=== PATIENT | female | born 1995 ===

== ENCOUNTER 2016-07-09 20:02 | Emergency (ER) | payer MEDICAID, OTHER ==
[2016-07-09 20:13] VITALS: BP 117/74; PULSE 90; RESP 18; TEMP 98.4; O2SAT 100
--- NOTE | 2016-07-09 21:13 | C.PDOC ---
History Of Present Illness 20 yr old female presents to the ER with complaints of dental pain and swelling for the past 2 days. Patient reports she is 4 months . Patient denies fever, chills, difficulty swallowing, throat swelling, difficulty breathing, neck pain, headache, weakness or numbness. 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) Onset/Duration Of Symptoms: Days (2) Current Symptoms Are (Timing): Still Present Past Medical History Reviewed: Historical Data, Nursing Documentation, Vital Signs Vital Signs: Last Vital Signs Temp 98.4 F 07/09/16 20:10 Pulse 90 07/09/16 20:10 Resp 18 07/09/16 20:10 BP 117/74 07/09/16 20:10 Pulse Ox 100 07/09/16 21:29 Family History: States: No Known Family Hx - Social History Hx Alcohol Use: No Hx Substance Use: No - Immunization History Hx Tetanus Toxoid Vaccination: Yes Hx Influenza Vaccination: No Hx Pneumococcal Vaccination: No Review Of Systems Except As Marked, All Systems Reviewed And Found Negative. Constitutional: Negative for: Fever, Chills ENT: Positive for: Other (Dental pain and swelling. ). Negative for: Throat Swelling Respiratory: Positive for: Other ((-) Difficulty breathing) Musculoskeletal: Negative for: Neck Pain Neurological: Negative for: Weakness, Numbness, Headache Physical Exam - Physical Exam Appears: Well, Non-toxic, No Acute Distress Skin: Warm, Dry, No Rash Head: Atraumatic, Normacephalic Eye(s): bilateral: Normal Inspection, EOMI Ear(s): Bilateral: Normal Nose: Normal Oral Mucosa: Moist Teeth: Tender To Palpation, Other (Tenderness to the right mandibular third molar, with partial eruption of the tooth.) Gingiva: Swelling, Tender, No Bleeding, No Abscess Throat: Normal, No Erythema, No Exudate Neck: Normal, Normal ROM, Supple Lymphatic: Normal Exam Chest: Symmetrical, No Tenderness Cardiovascular: Rhythm Regular Respiratory: Normal Breath Sounds Extremity: Normal ROM, No Swelling Neurological/Psych: Oriented x3, Normal Speech ED Course And Treatment O2 Sat by Pulse Oximetry: 100 Medical Decision Making Medical Decision Making: PLAN: * Motrin PO * Tylenol PO * Lidocaine Viscous PO Disposition - Disposition Referrals: Clinic,Med Surg [Primary Care Provider] - Disposition: HOME/ ROUTINE Disposition Time: 21:12 Condition: STABLE Additional Instructions: Vaya a schmitt mdico o la clnica en 1-3 colon sin falta, para mas evaluacin. [place] los medicamentos yue indicado. Volver a la abel de emergencia en cualquier momento si los sntomas persisten o empeoran. Prescriptions: Acetaminophen [Tylenol 325mg tab] 650 mg PO Q4 PRN #20 tab PRN Reason: Pain, Mild (1-3) Amoxicillin 875 mg PO BID #14 tablet Instructions: Toothache (ED) Print Language: ITALIAN - Clinical Impression Clinical Impression: Pain, dental - PA / RN IMCU / Resident Statement MD/DO has reviewed & agrees with the documentation as recorded. - Scribe Statement The provider has reviewed the documentation as recorded by the Scribe Poly Hernandez All medical record entries made by the Scribe were at my direction and personally dictated by me. I have reviewed the chart and agree that the record accurately reflects my personal performance of the history, physical exam, medical decision making, and the department course for this patient. I have also personally directed, reviewed, and agree with the discharge instructions and disposition.
== END 2016-07-09 21:23 | disposition home or self-care (01) ==
LOC: C.ER 20:02 → SUPCPDRO 20:02 → C.ER 21:23
DX: O99.612 Diseases of the digestive system complicating pregnancy, second trimester (principal); K08.89 Other specified disorders of teeth and supporting structures; Z3A.16 16 weeks gestation of pregnancy

== ENCOUNTER 2016-07-17 21:52 | Emergency (ER) | payer OTHER ==
[2016-07-17 22:15] VITALS: BP 101/58; PULSE 85; RESP 20; TEMP 98.5; O2SAT 100
--- NOTE | 2016-07-17 22:52 | C.PDOC ---
History Of Present Illness 20 yr old female presents to the ER with complaints of Right lower toothache for the past 7 days. Patient reports she is 4 months . Patient admits, pain is localized, worse with chewing, aching. Patient denies fever, chills, headache, dizziness, drooling, difficulty swallowing, throat swelling, difficulty breathing, neck pain, CP, SOB, wheezing or any other active complaints. Pt admits, was seen here iN ED week ago due to same complaints and received Rx: Tylenol and Amoxicillin. Pt sts, Tylenol does not relived pain. Pt also was re-evaluated by Dentist who recommend painful tooth extracting alter after the . At present time, pt appears in pain. Time Seen by Provider: 07/17/16 22:50 Chief Complaint (Nursing): Dental Pain History Per: Patient Onset/Duration Of Symptoms: Gradual Current Symptoms Are (Timing): Still Present Past Medical History Reviewed: Historical Data, Nursing Documentation, Vital Signs Vital Signs: Last Vital Signs Temp 98.5 F 07/17/16 22:11 Pulse 85 07/17/16 22:11 Resp 20 07/17/16 22:11 BP 101/58 L 07/17/16 22:11 Pulse Ox 100 07/17/16 23:43 - Medical History PMH: No Chronic Diseases Family History: States: No Known Family Hx - Social History Hx Alcohol Use: No Hx Substance Use: No - Immunization History Hx Tetanus Toxoid Vaccination: Yes Hx Influenza Vaccination: No Hx Pneumococcal Vaccination: No Review Of Systems Except As Marked, All Systems Reviewed And Found Negative. Constitutional: Negative for: Fever, Chills ENT: Positive for: Mouth Pain. Negative for: Ear Discharge, Nose Discharge, Mouth Swelling, Throat Pain, Throat Swelling Cardiovascular: Negative for: Chest Pain, Palpitations, Edema, Light Headedness Respiratory: Negative for: Shortness of Breath, Wheezing Gastrointestinal: Negative for: Nausea, Vomiting, Abdominal Pain Genitourinary: Negative for: Dysuria, Vaginal Bleeding Musculoskeletal: Negative for: Neck Pain Skin: Negative for: Rash Neurological: Negative for: Weakness, Numbness, Altered Mental Status, Headache , Dizziness Physical Exam - Physical Exam Appears: Well, Non-toxic, No Acute Distress Skin: Normal Color, Warm, No Rash Eye(s): bilateral: PERRL Ear(s): Bilateral: Normal Nose: Normal, No Discharge Oral Mucosa: Moist, No Drooling, No Trismus Tongue: Normal Appearing Lips: Normal Appearing Teeth: Tender To Palpation (Right lower wisdom , early eruption process. No gingival edema or erythema, no evidence of tooth abscess.) Gingiva: Normal Appearing, No Swelling, No Bleeding, No Abscess Throat: Normal, No Erythema, No Exudate, No Drooling, Other (Uvula midline, no edema.) Neck: Normal ROM, Trachea Midline, Supple Respiratory: No Decreased Breath Sounds, No Accessory Muscle Use, No Stridor, No Wheezing Extremity: No Pedal Edema Neurological/Psych: Oriented x3, Normal Speech ED Course And Treatment O2 Sat by Pulse Oximetry: 100 Pulse Ox Interpretation: Normal Progress Note: On re-eval, pt is afebrile, hemodynamicaly stable. Non-toxic. AMbulatory in ED with stable gait. Tolerate PO well in ED. PulseOx 100% RA. ENT: exam c/w Right lower wisdom tooth eruption with mild inflammation. No evidence of tooth abscess, no drooling or trismus. Lungs: CTA B/L, BS equal B/ L. Pt andvised and ref. to f/u with DEntist in 2 days for re-eval. Disposition Counseled Patient/Family Regarding: Diagnosis, Need For Followup, Rx Given - Disposition Referrals: [facility] [Provider Group] [facility] [Provider Group] Disposition: HOME/ ROUTINE Disposition Time: 23:40 Condition: STABLE Additional Instructions: Cold compresses to painful tooth Take medication as prescribed Tylenol 1g as need for pain Follow up with Dentist in 2-3 days for re-evaluation. Return to ED if any worsening or new changes. Prescriptions: Prednisone [Deltasone] 20 mg PO DAILY #3 tablet Instructions: Toothache (ED) Print Language: WOLOF - Clinical Impression Clinical Impression: Toothache
[2016-07-17] MEDS ORDERED: Oxycodone/Acetaminophen 5/325 mg Tab PO STA (23:17)
[2016-07-17] MEDS ORDERED: Oxycodone/Acetaminophen 5/325 mg Tab ONE (23:23)
== END 2016-07-17 23:46 | disposition home or self-care (01) ==
LOC: C.ER 21:52
DX: O99.612 Diseases of the digestive system complicating pregnancy, second trimester (principal); K08.89 Other specified disorders of teeth and supporting structures; Z3A.16 16 weeks gestation of pregnancy

== ENCOUNTER 2016-09-24 13:54 | Emergency (ER) | payer OTHER ==
[2016-09-24 13:58] VITALS: BMI 28.5
[2016-09-24 13:59] VITALS: TEMP 98.1; O2SAT 99
[2016-09-24] MEDS ORDERED: Sodium Chloride 0.9% 1,000 ML IV ONE (14:18)
[2016-09-24] MEDS ORDERED: Sodium Chloride 0.9% 1,000 ML ONE (14:48)
[2016-09-24 14:49] LABS: BASO % 0.3 % (0.0-2.0); EOS % 0.5 % (0.0-4.0); HEMOGLOBIN 10.2 g/dL (11.0-16.0); LYMPH # 1.3 K/uL (1.0-4.3); LYMPH % 12.7 % (20.0-40.0); MEAN CELL VOLUME 92.2 fL (81.0-99.0); MEAN CORPUSCULAR HEMOGLOBIN 30.4 pg (27.0-31.0); MEAN CORPUSCULAR HGB CONC 32.9 g/dL (33.0-37.0); MEAN PLATELET VOLUME 9.4 fL (7.2-11.7); MONO # 0.7 K/uL (0.0-0.8); MONO % 6.3 % (0.0-10.0); NEUT # 8.5 K/uL (1.8-7.0); NEUT % 80.2 % (50.0-75.0); RBC 3.35 Mil/uL (3.80-5.20); RED CELL DISTRIBUTION WIDTH 12.9 % (11.5-14.5); WHITE BLOOD COUNT 10.6 K/uL (4.8-10.8)
[2016-09-24 14:57] LABS: ALBUMIN 3.2 g/dL (3.5-5.0)
[2016-09-24 14:59] LABS: SQUAMOUS EPITHIAL 5 /hpf (0-5); URINE AMORPHOUS SEDIMENT OCC /ul (<OCC); URINE BILIRUBIN NEGATIVE (NEGATIVE); URINE BLOOD NEGATIVE (NEGATIVE); URINE CLARITY Hazy (Clear); URINE COLOR Yellow (YELLOW); URINE GLUCOSE (UA) NORMAL (Normal); URINE LEUKOCYTE ESTERASE TRACE Leu/uL (Negative); URINE NITRATE NEGATIVE (NEGATIVE); URINE PROTEIN NEGATIVE (NEGATIVE); URINE UROBILINOGEN NORMAL mg/dL (0.2-1.0)
[2016-09-24 15:00] LABS: ALB/GLOB RATIO 1.1 (1.0-2.1); AST/SGOT 14 U/L (14-36); BLOOD UREA NITROGEN 12 mg/dL (7-17); GFR AFRICAN-AMERICAN > 60; GFR NON-AFRICAN AMERICAN > 60
[2016-09-24 15:01] LABS: ALT/SGPT 22 U/L (9-52); CALCIUM 8.1 mg/dl (8.6-10.4)
[2016-09-24 15:10] LABS: B-TYPE NATRIURETIC PEPTIDE 40.9 pg/mL (0-450)
--- NOTE | 2016-09-24 15:23 | C.PDOC ---
Time Seen by Provider: 09/24/16 14:04 Chief Complaint (Nursing): Shortness Of Breath History Per: Patient Onset/Duration Of Symptoms: Days (1) Current Symptoms Are (Timing): Still Present Initiating Event: Other (Hot/humid weather) Context: Pt is 26 weeks Current Respiratory Medications: None Severity: Mild Associated Symptoms: Other (Headache) Recent travel outside of the [place]: No Additional History Per: Prior Records Past Medical History Reviewed: Historical Data, Nursing Documentation, Vital Signs Vital Signs: Last Vital Signs Temp 98.1 F 09/24/16 13:58 Pulse 106 H 09/24/16 13:58 Resp 18 09/24/16 14:52 BP 101/64 09/24/16 13:58 Pulse Ox 99 09/24/16 13:58 - Medical History PMH: No Chronic Diseases Surgical History: No Surg Hx Family History: States: Unknown Family Hx - Social History Hx Tobacco Use: No Hx Alcohol Use: No Hx Substance Use: No - Immunization History Hx Tetanus Toxoid Vaccination: Yes Hx Influenza Vaccination: No Hx Pneumococcal Vaccination: No Review Of Systems Except As Marked, All Systems Reviewed And Found Negative. Constitutional: Negative for: Fever ENT: Negative for: Nose Congestion, Throat Pain Cardiovascular: Negative for: Chest Pain Respiratory: Positive for: Shortness of Breath. Negative for: Cough, Hemoptysis Gastrointestinal: Negative for: Nausea, Vomiting, Abdominal Pain, Diarrhea Genitourinary: Negative for: Dysuria, Vaginal Discharge, Vaginal Bleeding, Pelvic Pain Musculoskeletal: Negative for: Neck Pain, Back Pain, Leg Pain Skin: Negative for: Rash Neurological: Positive for: Headache. Negative for: Weakness, Numbness, Incoordination, Change in Speech, Confusion, Seizures, Altered Mental Status Physical Exam - Physical Exam Appears: Non-toxic, No Acute Distress Skin: Normal Color, Warm, Dry, No Rash Head: Atraumatic, Normacephalic Eye(s): bilateral: Normal Inspection, PERRL, EOMI Oral Mucosa: Moist Neck: Normal ROM, Supple Cardiovascular: Rhythm Regular Respiratory: Normal Breath Sounds, No Accessory Muscle Use Gastrointestinal/Abdominal: Soft, No Tenderness, Other (Gravid) Back: No CVA Tenderness Extremity: Normal ROM, No Pedal Edema, No Calf Tenderness Neurological/Psych: Oriented x3, Normal Speech, Normal Motor, Normal Sensation ED Course And Treatment - Laboratory Results Result Diagrams: 09/24/16 14:46 09/24/16 14:46 O2 Sat by Pulse Oximetry: 99 Pulse Ox Interpretation: Normal Progress Note: All symptoms have resolved after IV fluids and ice water. Symptoms likely due to hot weather. Reassessment Condition: Improved Progress - Interventions Interventions:: Observation, Intravenous fluid - Medications Administered Oral: Acetaminophen - Data Reviewed Data Reviewed: Lab, Old records - Patient Status Patient status: Completely improved - Continuity of Care Discussed patient case with:: Patient, ED Nurse - Patient Plan Patient Plan: Discharge, F/U with PCP Disposition Counseled Patient/Family Regarding: Studies Performed, Diagnosis, Need For Followup - Disposition Disposition: HOME/ ROUTINE Disposition Time: 15:25 Condition: IMPROVED Additional Instructions: Follow up with your doctor. Stay cool (air conditioning). Stay hydrated (drink plenty of fluids). Return to the ER if you develop chest pain, shortness of breath, abdominal pain, vaginal bleeding, worsening of symptoms or if you have any other concerns. Instructions: (ED) Print Language: TELUGU - Clinical Impression Clinical Impression: Headache, Dyspnea,
[2016-09-24 15:39] VITALS: BP 97/60; PULSE 81; RESP 19
== END 2016-09-24 15:41 | disposition home or self-care (01) ==
LOC: C.ER 13:54
DX: O26.892 Other specified pregnancy related conditions, second trimester (principal); R06.00 Dyspnea, unspecified; R51 Headache; Z3A.26 26 weeks gestation of pregnancy
CPT/HCPCS: 80053; 81001; 83880; 84484; 85025; 96360; 99285; J7040

== ENCOUNTER 2016-11-29 15:00 | Emergency (ER) | payer OTHER ==
--- NOTE | 2016-11-29 15:19 | OBHP ---
Datetime: 11/29/2016 15:15 IP Adm Impression: , intrauterine IP Chief Complaint Other: brownish discharge Admit Comment, IP Provider: at 36weeks came with c/o brownish discharge x 1 at 10 am,no bleedin g now, no ctxs, vb, lof,+fm. no hedache or blurry vision. obhx 1 x pmh den med pnv all nkda psh den soch den sse neg a/p at 36weeks brownish disc/r/o ph pih labs cont melanie ad efm cont close observ Pelvic Type - PN: Adequate Extremities - PN: Normal Abdomen - PN: Normal Back - PN: Normal Breast - PN: Not Done Lungs - PN: Normal Heart - PN: Normal Thyroid - PN: Not Done Neurologic - PN: Normal HEENT - PN: Normal General - PN: Normal FHR - Baseline A Provider: 130 Contraction Comments Provider: none Comments, ACOG Physical Exam: gravid,non tender ext no edema,no calf ten ve closed NICHD Variability Prov Fetus A: Moderate 6-25bpm NICHD Accel Fetus A IP Provider: 15X15 FHR Category Provider Fetus A: Category I Dilatation, Provider: 0 Effacement, Provider: 0 Station, Provider: -3 Genitourinary Exam: Normal DTRs - PN: Normal
[2016-11-29 15:57] LABS: RBC URINE 1 /hpf (0-3); URINE BACTERIA RARE (<OCC); URINE BILIRUBIN NEGATIVE (NEGATIVE); URINE BLOOD NEGATIVE (NEGATIVE); URINE COLOR Yellow (YELLOW); URINE GLUCOSE (UA) 1+ mg/dL (Normal); URINE KETONE NEGATIVE (NEGATIVE); URINE LEUKOCYTE ESTERASE TRACE Leu/uL (Negative); URINE PROTEIN 1+ mg/dL (NEGATIVE); URINE UROBILINOGEN NORMAL mg/dL (0.2-1.0); WBC URINE 6 /hpf (0-5)
[2016-11-29 15:58] LABS: BASO # 0.1 K/uL (0.0-0.2); BASO % 0.6 % (0.0-2.0); EOS % 0.5 % (0.0-4.0); HEMATOCRIT 29.6 % (34.0-47.0); LYMPH # 1.4 K/uL (1.0-4.3); MEAN CORPUSCULAR HGB CONC 33.7 g/dL (33.0-37.0); MEAN PLATELET VOLUME 9.7 fL (7.2-11.7); MONO # 0.7 K/uL (0.0-0.8); MONO % 6.2 % (0.0-10.0); RED CELL DISTRIBUTION WIDTH 12.5 % (11.5-14.5); WHITE BLOOD COUNT 10.9 K/uL (4.8-10.8)
[2016-11-29 15:59] LABS: MEAN CELL VOLUME 88.8 fL (81.0-99.0)
[2016-11-29 16:16] LABS: ALB/GLOB RATIO 1.2 (1.0-2.1); ALKALINE PHOSPHATASE 140 U/L (38-126); ALT/SGPT 32 U/L (9-52); AST/SGOT 20 U/L (14-36); BILIRUBIN,DIRECT 0.1 mg/dL (0.0-0.4); BILIRUBIN,TOTAL 0.3 mg/dL (0.2-1.3); BLOOD UREA NITROGEN 9 mg/dL (7-17); CALCIUM 8.8 mg/dl (8.6-10.4); CARBON DIOXIDE 22 mmol/L (22-30); CHLORIDE 106 mmol/L (98-107); GFR AFRICAN-AMERICAN > 60; GLUCOSE,RANDOM 80 mg/dL (65-105); POTASSIUM 3.8 mmol/L (3.6-5.2); SODIUM 136 mmol/L (132-148); TOTAL PROTEIN 6.2 g/dL (6.3-8.3)
[2016-11-29 20:44] VITALS: BP 106/62; PULSE 86; RESP 18; TEMP 97; O2SAT 98
== END 2016-11-29 16:42 | disposition home or self-care (01) ==
LOC: C.EROB 15:00
DX: O26.893 Other specified pregnancy related conditions, third trimester (principal); Z3A.36 36 weeks gestation of pregnancy

== ENCOUNTER 2016-12-08 22:26 | Emergency (ER) | payer MEDICAID, OTHER ==
--- NOTE | 2016-12-08 23:32 | OBHP ---
Datetime: 12/08/2016 23:26 IP Adm Impression: Term, intrauterine ; No Active Labor IP Chief Complaint Other: pelvic pressure and swelling in ankles IP Admit Plan: Discharge home Admit Comment, IP Provider: chief complaint-pelvic pressure and swelling in ankles HPI 20 y/o at 37 weeksa nd 3 dasy with c/o pelvic pressure and notcijg swelling in ankles.den ies any vaginal bleeidng or calf painl trauma to legs, nausea, vomiting, headache. chest pain, shortn ess of breath, numbness or tingling in hands and feet couerse teen PMH denies PSH denies OBGYN HX Social hx denies tobacco,alcohol or illicit drug use Exam see exam section Extremities no calf tenderness; no erythema or induration or palpable cord in legs; trace pitting ededma in both ankles noted A/P 20 y/o at 37 .3 wga with c/o swelling in legs and pelvic pressure.no active labor.clinica lly no signs of dvt.patient discharged home -follow up in clinic in am -patient given labor, prom , bleeidng, dvt, decreased movement precautions Pelvic Type - PN: Adequate Extremities - PN: Normal Abdomen - PN: Normal Back - PN: Normal Lungs - PN: Normal Heart - PN: Normal Neurologic - PN: Normal General - PN: Normal Contraction Comments Provider: occ EGA AdmitDate IP: 37.3 Vital Signs Provider: Reviewed; Within Normal Limits IP Chief Complaint: Other FHR Category Provider Fetus A: Category I Dilatation, Provider: 0 Genitourinary Exam: Normal DTRs - PN: Normal
[2016-12-09 07:56] VITALS: BP 106/63; PULSE 84; RESP 20; TEMP 97.2
== END 2016-12-08 23:25 | disposition home or self-care (01) ==
LOC: C.EROB 22:26
DX: O26.893 Other specified pregnancy related conditions, third trimester (principal); Z3A.37 37 weeks gestation of pregnancy; R10.2 Pelvic and perineal pain; M79.89 Other specified soft tissue disorders

== ENCOUNTER 2016-12-25 20:01 | Emergency (ER) | payer MEDICAID, OTHER ==
--- NOTE | 2016-12-25 20:24 | OBHP ---
Datetime: 12/25/2016 20:19 IP Adm Impression: Term, intrauterine ; No Active Labor IP Chief Complaint Other: pelvic pressure IP Admit Plan: Discharge home Admit Comment, IP Provider: chief complaint-pelvic pressure and swelling in ankles HPI 20 y/o at 39weeksa nd 6 dasy with c/o pelvic pressure .states that she edmond dpelvic doscomf ort yesterday and also edmond dabdominal pain.pain is gone now but she fel pressure. she denies nausea, vomiting, headache. chest pain, shortness of breath, numbness or tingling in hands and feet couerse teen PMH denies PSH denies OBGYN HX Social hx denies tobacco,alcohol or illicit drug use Exam see exam section A/P 20 y/o at 39 .6 wga with c/o pelvic pressure.no active labor.nst reactive -patient discharegd home -follow up in clinic next week Pelvic Type - PN: Adequate Extremities - PN: Normal Abdomen - PN: Normal Back - PN: Normal Lungs - PN: Normal Heart - PN: Normal Neurologic - PN: Normal General - PN: Normal Weight - Estimated: 3200 Presentation-Admit: Vertex Gestation - Est Wks by US: 39.6 IP Hx Assessment: The History has been Reviewed and is Current EGA AdmitDate IP: 39.6 Vital Signs Provider: Reviewed; Within Normal Limits IP Chief Complaint: Other FHR Category Provider Fetus A: Category I Dilatation, Provider: ft Effacement, Provider: 30 Station, Provider: -3 Genitourinary Exam: Normal DTRs - PN: Normal
[2016-12-26 01:27] VITALS: BP 112/74; PULSE 80
== END 2016-12-25 20:45 | disposition home or self-care (01) ==
LOC: C.EROB 20:01
DX: O26.93 Pregnancy related conditions, unspecified, third trimester (principal); R10.2 Pelvic and perineal pain; Z3A.39 39 weeks gestation of pregnancy

== ENCOUNTER 2016-12-31 19:28 | Inpatient (IN) | payer MEDICAID, OTHER ==
[2016-12-31 19:57] VITALS: BMI 27.9
[2016-12-31] MEDS ORDERED: Dextrose 5%/Lactated Ringer's 1,000 ML IV SCH (20:00)
[2016-12-31] MEDS ORDERED: Lactated Ringer's 1,000 ML IV SCH (20:00)
[2016-12-31 20:33] LABS: CHLORIDE 101 mmol/L (98-107)
[2016-12-31 20:34] LABS: POTASSIUM 3.8 mmol/L (3.6-5.2); SODIUM 131 mmol/L (132-148)
[2016-12-31 20:36] LABS: ALB/GLOB RATIO 1.2 (1.0-2.1); ALKALINE PHOSPHATASE 192 U/L (38-126); AST/SGOT 17 U/L (14-36); BILIRUBIN,TOTAL 0.5 mg/dL (0.2-1.3); BLOOD UREA NITROGEN 12 mg/dL (7-17); CARBON DIOXIDE 21 mmol/L (22-30); GFR AFRICAN-AMERICAN > 60; TOTAL PROTEIN 6.7 g/dL (6.3-8.3)
[2016-12-31 20:37] LABS: ALT/SGPT 23 U/L (9-52); CALCIUM 8.7 mg/dl (8.6-10.4); GLUCOSE,RANDOM 74 mg/dL (65-105); RBC URINE 1 /hpf (0-3); URINE BACTERIA OCC (<OCC); URINE BILIRUBIN NEGATIVE (NEGATIVE); URINE BLOOD NEGATIVE (NEGATIVE); URINE COLOR Yellow (YELLOW); URINE GLUCOSE (UA) NORMAL (Normal); URINE KETONE NEGATIVE (NEGATIVE); URINE LEUKOCYTE ESTERASE 2+ Leu/uL (Negative); URINE PROTEIN 1+ mg/dL (NEGATIVE); URINE UROBILINOGEN NORMAL mg/dL (0.2-1.0); WBC URINE 19 /hpf (0-5)
[2016-12-31 20:40] LABS: BASO % 0.1 % (0.0-2.0); EOS % 0.2 % (0.0-4.0); HEMATOCRIT 31.3 % (34.0-47.0); LYMPH # 1.7 K/uL (1.0-4.3); LYMPH % 16.9 % (20.0-40.0); MEAN CELL VOLUME 89.1 fL (81.0-99.0); MEAN CORPUSCULAR HEMOGLOBIN 29.6 pg (27.0-31.0); MEAN CORPUSCULAR HGB CONC 33.2 g/dL (33.0-37.0); MONO # 0.7 K/uL (0.0-0.8); MONO % 6.8 % (0.0-10.0); RED CELL DISTRIBUTION WIDTH 14.1 % (11.5-14.5); WHITE BLOOD COUNT 9.9 K/uL (4.8-10.8)
[2016-12-31 22:37] LABS: RAPID PLASMA REAGIN NONREACTIVE (NONREACTIVE)
--- NOTE | 2017-01-01 02:54 | OBADHP ---
Datetime: 12/31/2016 19:55 Admit Comment, IP Provider: 21 y.o, , LMP unsure, CRUZITO 12/26/16, EGA 40w 5d by sono 06/22/16 at 1 8w 2d, for IOL. (+) AFM; denies LOF, VB; Has been having occ. mild CTx since CRUZITO; pain scale 3/10. 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 With FOB x 1/2 years; lives with him and daught er. Unemployed. Fam Hx: Mother alive 45 y.o. no med issues. Father unknown. No knonw fam h/o cancer P.E.: as above. Mildly obese in NAD. Awake, alert, oriented to time, person and place. Pleasant an d cooperative. FOB joined patient Assessment: 21 y.o. P1, 40w 5d, IOL. GBS (-). Category 1 tracing. D/W paitent cervical ripening. N ot interested in pain medications. Clinically stable. Plan: 1) Admit 2) NPO 3) IVFs 4) Continous EFM 5) Admission labs 6) Cervidil 7) Anticipate vaginial delivery Pelvic Type - PN: Adequate Extremities - PN: Normal Abdomen - PN: Normal Back - PN: Normal Breast - PN: Not Done Lungs - PN: Normal Heart - PN: Normal Thyroid - PN: Not Done Neurologic - PN: Normal HEENT - PN: Normal General - PN: Normal Presentation-Admit: Vertex FHR - Baseline A Provider: 135 Contraction Comments Provider: 10 minutes Comments, ACOG Physical Exam: Abdomen: Gravid. Soft. non tender. fundal height 39 cm All other systems reviewed and are negative Gestation - Est Wks by US: 40w 5d IP Hx Assessment: The History has been Reviewed and is Current Vital Signs Provider: Reviewed; Within Normal Limits IP Chief Complaint: Scheduled induction of labor NICHD Variability Prov Fetus A: Moderate 6-25bpm NICHD Accel Fetus A IP Provider: 15X15 FHR Category Provider Fetus A: Category I NICHD Decel Fetus A IP Provider: None Dilatation, Provider: 1 Effacement, Provider: 30 Station, Provider: -3 Genitourinary Exam: Normal DTRs - PN: Not Done EGA AdmitDate IP: 40.5 IP Adm Impression: Postterm, intrauterine ; No Active Labor IP Admit Plan: Admit to unit; Initiate labor induction protocol Datetime: 12/25/2016 20:19 IP Chief Complaint Other: pelvic pressure Weight - Estimated: 3200
--- NOTE | 2017-01-01 03:00 | OBPN ---
Datetime: 12/31/2016 21:42 IP Progress Impression: Reassuring heart rate IP Procedures: Sterile Vag Exam IP Progress Plan: Continue present management; Cervical Ripening; Anticipate Vaginal Delivery Membranes, Provider: Intact Contraction Comments Provider: 10 minutes FHR - Baseline A Provider: 135 Gestation - Est Wks by US: 40w 5d Weight - Estimated: 3632 IP Progress Note Comment: Cervidil placed, posterior vaginal vault without incident A/P: P1, 40w 5d, IOL. Cervidil in place. Category 1 tracing. Clinically stable. Plan: 1) Anticipate vaginal delivery NICHD Accel Fetus A IP Provider: 15X15 FHR Category Provider Fetus A: Category I NICHD Variability Prov Fetus A: Moderate 6-25bpm Dilatation, Provider: 1 Effacement, Provider: 30 Station, Provider: -3 NICHD Decel Fetus A IP Provider: None Datetime: 12/31/2016 19:55 Presentation-Admit: Vertex Vital Signs Provider: Reviewed; Within Normal Limits
[2017-01-01] MEDS ORDERED: Oxytocin 30 UNIT 30 UNITS/500 ML BAG IV ONE (12:23)
--- NOTE | 2017-01-01 12:24 | OBPN ---
Datetime: 01/01/2017 11:46 IP Progress Impression: Reassuring heart rate IP Procedures: Artificial ROM IP Progress Plan: Continue present management Pool Provider: Positive Membranes, Provider: Ruptured Amniotic Fluid Color, Provider: Clear FHR - Baseline A Provider: 140 IP Progress Note Comment: Patient states her current pain is about 7/10 but states she still wishes to proceed without an epidural. Ruptured membranes at 11:44am Vaginal Exam: 4/50%/-3 1.) Start pitocin 2.) Continue FHR monitoring Ирина Tai DO PGY-1 Pt was seen and examined with resident and I agree with the above. Dr Naik Vital Signs Provider: Reviewed; Within Normal Limits NICHD Accel Fetus A IP Provider: 15X15 NICHD Variability Prov Fetus A: Moderate 6-25bpm Dilatation, Provider: 4 Effacement, Provider: 50 Station, Provider: -3 NICHD Decel Fetus A IP Provider: None
[2017-01-01] MEDS ORDERED: Oxytocin 30 UNIT 30 UNITS/500 ML BAG IV SCH (12:45)
[2017-01-01] MEDS ORDERED: Oxycodone/Acetaminophen 5/325 mg Tab PO PRN ×2 (13:35)
--- NOTE | 2017-01-01 16:38 | OBDS ---
DELIVERY PERSONNEL Delivery Doctor: Anupam Naik MD Licensed Physical Therapist: Dulce Quintero RN MATERNAL INFORMATION Delivery Anesthesia: None Estimated Blood Loss (ml): 200 Placenta Cultured: No Maternal Complications: None RN Comments: liveborn Provider Comments: Uncomplicated Spontaneouys vaginal delivery of a viable female with BW 8Ib s 2 oz and scores of 9 and 9. No vaginal lacerations. LABOR SUMMARY EDC: 12/26/2016 00:00 No. Babies in Womb: 1 Attempted: No Labor Anesthesia: None LABOR INFORMATION Onset of Labor: 01/01/2017 13:07 Complete Dilatation: 01/01/2017 13:07 Cervical Ripening Agents: Cervidil (Annotations: cervidil pulled by Dr Naik) Oxytocin: Augmentation Group B Beta Strep: Negative MEMBRANES Membranes Rupture Method: Artificial Rupture of Membranes: 01/01/2017 11:41 Length of Rupture (hrs): 1.60 Amniotic Fluid Color: Clear Amniotic Fluid Amount: Large Amniotic Fluid Odor: None STAGES OF LABOR Stage 1 hrs: 0 Stage 1 min: 0 Stage 2 hrs: 0 Stage 2 min: 10 Stage 3 hrs: 0 Stage 3 min: 8 Total Time in Labor hrs: 0 Total Time in Labor min: 18 VAGINAL DELIVERY Episiotomy: None Laceration Extension: N/A Laceration Type: None Initial Vag Sponge Count: 10 Final Vag Sponge Count: 10 Initial Vag Sharps Count: 0 Final Vag Sharps Count: 0 Sponge Count Correct: Yes Sharps Count Correct: N/A BABY A INFORMATION Infant Delivery Date/Time: 01/01/2017 13:17 Method of Delivery: Vaginal Born in Route : No : N/A Forceps: N/A Vacuum Extraction: N/A Shoulder Dystocia : No SHOULDER DYSTOCIA BABY A Delivery Date/Time: 01/01/2017 13:17 PRESENTATION/POSITION BABY A Presentation: Cephalic Cephalic Presentation: Vertex Vertex Position: Left Occipital Anterior Breech Presentation: N/A PLACENTA INFORMATION BABY A Placenta Delivery Time : 01/01/2017 13:25 Placenta Method of Delivery: Expressed Placenta Status: Delivered SCORES BABY A Heart Rate 1 min: >100 bpm Resp Effort 1 min: Good Cry Reflex Irritability 1 min: Cough or Sneeze or Pulls Away Muscle Tone 1 min: Active Motion Color 1 min: Body [place], Extremities Blue Resuscitation Effort 1 min: Tactile Stimulation SCORE 1 MIN: 9 Heart Rate 5 min: >100 bpm Resp Effort 5 min: Good Cry Reflex Irritability 5 min: Cough or Sneeze or Pulls Away Muscle Tone 5 min: Active Motion Color 5 min: Body [place], Extremities Blue Resuscitation Effort 5 min: N/A SCORE 5 MIN: 9 INFORMATION BABY A Gestational Age at Delivery: 40.6 Gestational Status: Post-term Infant Outcome : Liveborn Infant Condition : Stable Infant Sex: Female IDENTIFICATION/MEDS BABY A ID Band Number: [id number] ID Band Location: Left Leg; Left Arm Sensor Number: [id number] WEIGHT/LENGTH BABY A Infant Birthweight (gms): 3690 Infant Weight (lb): 8 Infant Weight (oz): 2 Infant Length Inches: 20.00 Length cms: 50.8 CORD INFORMATION BABY A No. Cord Vessels: 3 Nuchal Cord : Around Neck x1, Loose Cord Blood Taken: Yes Suction: Mouth; Nose; Pharynx ASSESSMENT BABY A Complications: None Physical Findings at Delivery: Within Normal Limits Respirations: Appears Normal Shipping Track Supervisor/ALS Called : No Care By: Job Wei Transferred To: Remains with Mother
[2017-01-02] MEDS ORDERED: Influenza Vaccine 60 mcg/0.5 mL SYR (4YR UP) IM ONE (06:00)
[2017-01-02 08:11] VITALS: RESP 18
[2017-01-02 08:16] LABS: HEMATOCRIT 28.7 % (34.0-47.0); MEAN CELL VOLUME 89.4 fL (81.0-99.0); MEAN CORPUSCULAR HEMOGLOBIN 30.5 pg (27.0-31.0); MEAN CORPUSCULAR HGB CONC 34.1 g/dL (33.0-37.0); RED CELL DISTRIBUTION WIDTH 14.4 % (11.5-14.5); WHITE BLOOD COUNT 8.8 K/uL (4.8-10.8)
--- NOTE | 2017-01-02 09:00 | OBPPN ---
Datetime: 01/02/2017 08:51 PP Pain Prov: Within normal limits PP Nausea Prov: Denies PP Flatus Prov: Yes PP BM Prov: No PP Breasts Prov: Normal PP Heart Prov: Normal PP Lungs Prov: Normal PP Abdomen/Uterus Prov: Normal PP Lochia Prov: Normal PP Vulva/Perineum Prov: Normal PP CVA Tenderness Prov: Normal PP Extremities Prov: Normal PP C/S Incision Prov: Not Applicable PP Progress Prov: Normal PP Comments Phys Exam Prov: Abdomen: (+) BS; soft, non distended. Fundus firm, mobile, non tender, 1 FB below umbilicus. Mild lochia rubra All other systems reviewed and are negative PP Impression Prov: Normal progression PP Plan Prov: Continue present management PP Progress Note Prov: Patient received in bed in room 459;in good spirits. Breast- and bottlefeedi ng (breast primarily). Denies headaches, dizziness, palpitations or shortness of breath. P.E.: as above. WD in NAD. Awake, alert, oriented to time, person and place. Pleasanta nd coopera tive. FOB present - PPD#1 H/H 9.8/ 28.7, Rh(+) Assessment: PPD#1, 21 y.o. P2, S/P at 40w 6d. Afebrile, vital signs stable. Chronic anemia - asymptomatic and hemodynamically stable. Clinically stable. Plan: 1) Continue present management 2) Anticipate discharge home 01/03/17 Vital Signs Provider PP: Reviewed; Within Normal Limits
[2017-01-03 08:37] VITALS: BP 85/51; PULSE 87; TEMP 97.8; O2SAT 98
--- NOTE | 2017-01-03 09:47 | OBPPN ---
Datetime: 01/03/2017 09:41 PP Pain Prov: Within normal limits PP Nausea Prov: Denies PP Flatus Prov: Yes PP BM Prov: Yes PP Breasts Prov: Normal PP Heart Prov: Normal PP Lungs Prov: Normal PP Abdomen/Uterus Prov: Normal PP Lochia Prov: Normal PP Vulva/Perineum Prov: Not Done PP CVA Tenderness Prov: Normal PP Extremities Prov: Normal PP C/S Incision Prov: Not Applicable PP Progress Prov: Normal PP Comments Phys Exam Prov: Abdomen: soft. Non distended. Fundus firm, mobile, non tender, 18 weeks. Minimal lochia rubra. All other systems reviewed and are negative PP Impression Prov: Normal progression PP Plan Prov: Discharge PP Progress Note Prov: Patient receivedin bed, room 459; about to breastfeed. , primari ly; some bottle. Denies dizziness, lightheadedness. Ambulating and voiding without difficulty P.E.: as above. WD in NAD. Awake, alert, oriented to time, person and place. Pleasant and coopera tive. FOB present Assessment: PPD#2, 21 y.o. P2, S/P . Afebrile, vital signs stable. Chroinc anemia - stable. asymptomatic and hemodynamically stable. Interested in the patch for contraception. Clinically stable . Plan: 1) Discharge home 2) See full discharge notes Vital Signs Provider PP: Reviewed; Within Normal Limits
--- NOTE | 2017-01-03 09:49 | OBDCSUM ---
Datetime: 01/03/2017 07:46 Discharged to, Provider: Home Follow up at, Provider: [facility] Disch Instr Activity: Normal activity; May Shower Disch Instr Diet: Regular Discharge Diet restrict Prov: none Discharge Instructions, Provider: Routine instructions given Discharge Diagnosis, Provider: Postterm Delivery Discharge Time: 01/03/2017 11:00 Follow up in weeks, Provider: 6 weeks Disch Referrals: None Contraception discussed, Prov: Yes Disch Activity Restrictions: No sexual activity; Nothing in vagina - Index, tampons, douche Discharge Diagnosis Prov Other: Anemia Contraception counseling Contraception after Delivery: Control Pill/Patch
== END 2017-01-03 12:29 | disposition home or self-care (01) | DRG 373 ==
LOC: C.EROB 19:28 → C.4D 19:53 → C.4M 01-01 15:30
PROVIDERS: ADMIT Obstetrics & Gynecology; ATTEND Obstetrics & Gynecology
PROC: 10E0XZZ Delivery of Products of Conception, External Approach (ICD-10-PCS; principal; 2017-01-01)
PROC: 3E0P7VZ Introduction of Hormone into Female Reproductive, Via Natural or Artificial Opening (ICD-10-PCS; 2017-01-01)
PROC: 10907ZC Drainage of Amniotic Fluid, Therapeutic from Products of Conception, Via Natural or Artificial Opening (ICD-10-PCS; 2017-01-01)
DX: O48.0 Post-term pregnancy (principal); O99.214 Obesity complicating childbirth; O69.81X0 Labor and delivery complicated by cord around neck, without compression, not applicable or unspecified; Z3A.40 40 weeks gestation of pregnancy; Z37.0 Single live birth